=== PATIENT | male | born 1945 | race Caucasian/White ===

== ENCOUNTER 2017-02-18 15:14 | Emergency (ER) | payer MEDICARE, MEDICAID ==
[~2017-02-18] VITALS: Ht 165.1 cm; Wt 104.5 kg
[~2017-02-18 15:14] MED LIST: AMLODIPINE10 MG OR; AMLODIPINE10 MG PO; AMLODIPINE5 MG PO; ANTIVERT25 MG PO; ATENOLOL50 MG OR; ATORVASTATIN CA40 MG PO; AZITHROMYCIN250 MG PO; BABY ASPIRIN81 MG OR; BACTRIM DS1 TAB PO; BACTROBAN2 % EX; BD INSULIN SC; CARAFATE PO; CILOSTAZOL100 MG OR; CIPRO500 MG PO; CLONIDINE0.1 MG OR; CLONIDINE0.1 MG PO; CLOPIDOGREL75 MG PO; COUMADIN5 MG OR; COUMADIN5 MG PO; COUMADIN7.5 MG PO; CYCLOBENZAPR10 MG OR; DEPO-TESTOS200 MG/M1 IM; DIABETA5 MG OR; DILTIAZEM CD120 MG PO; DILTIAZEM120 MG PO; DOXAZOSIN4 MG PO; DOXYCYCL HYC100 MG PO; DUONEB IN; EASY TOUCH SC; FINASTERIDE5 MG PO; FLEXERIL OR; FLEXERIL PO; FLUARIX QUADRIV1 IN1 IM; FLUARIX QUADRIV1 INJ IM; FLUZONE SPLT1 M1 IM; FUROSEMIDE40 MG PO; GABAPENTIN300 MG PO; GABAPENTIN400 M2 PO; GLUCOPHAGE500 MG OR; GLYBURID MCR1.5 MG OR; GLYBURIDE5 MG OR; HUMULIN 70/30 IM; HUMULIN 70/30 K1 INJ SC; HYDRALAZINE100 MG PO; HYDRALAZINE25 MG OR; HYDRALAZINE25 MG PO; HYDRALAZINE50 MG OR; HYDROCHLORO25 MG/TAB PO; HYDROCHLOROT12.5 MG PO; HYDROCHLOROT25 MG PO; HYDROCO/APAP1 T11 PO; HYDROCO/APAP1 TA9 PO; HYDROXYZ HCL25 MG PO; IMDUR30 MG PO; INSULIN ISOPHANE HUMAN; INSULIN ISOPHANE HUMAN SC; INSULIN REGULAR HUMAN; INSULIN REGULAR HUMAN SC; ISOSORB MONO60 M1 PO; ISOSORB MONO60 MG OR; ISOSORB MONO60 MG PO; ISOSORBIDE MONO30 MG PO; KEFLEX500 M1 PO; KEFLEX500 MG PO; LANTUS100 MG/ML SC; LASIX 10 MG10 MG/TA1 PO; LASIX 20 MG TAB20 MG PO; LASIX 40 MG TAB40 MG PO; LEVEMIR FL100 UNIT/M SC; LIPITOR20 MG PO; LIPITOR40 MG PO; LISINOPRIL10 MG PO; LISINOPRIL20 M1 PO; LISINOPRIL20 MG PO; LISINOPRIL40 MG PO; LISINOPRIL5 MG PO; LORTAB 1010 MG PO; LORTAB 5 OR; LORTAB5 PO; LOTENSIN HCT1 TAB OR; MAXZIDE-2537.5 MG/TA PO; MECLIZINE25 MG PO; MEDDOSEPAK PO; MELOXICAM7.5 MG PO; METFORMIN500 M1 OR; METOPROL TAR100 MG OR; METOPROL TAR25 MG PO; METOPROLOL SUCC25 MG PO; METOPROLOL SUCC50 MG PO; METOPROLOL100 M1 OR; MICRO-K10 ME1 PO; MOTRIN800 MG PO; MOTRIN800 MG/TAB PO; NAPROSYN500 MG PO; NEURONTIN600 MG PO; NITROGLYCER0.4 MG SL; NITROSTAT0.4 MG SL; NORCO1 TA1 PO; NORVASC10 M1 OR; NORVASC5 MG PO; NOVOLIN 70/30 IM; NOVOLIN 70/30 SC; NOVOLO1; NOVOLO1 SC; NOVOLOG100 IU/1 M SC; NYSTAT/TRIA2 EX; OFLOXACIN0.3 % OD; PAIN MEDICATION; PAIN RELIEF500 MG OR; PLAVIX75 MG OR; PLAVIX75 MG PO; PLETAL100 MG OR; PLETAL50 MG OR; PREDNISONE10 MG PO; PRIMIDONE50 MG PO; PROAIR HFA IN; PROTONIX40 MG PO; QVAR80 MCG IN; SIMVASTATIN80 MG PO; TAMSULOSIN HCL0.4 MG PO; TERBINAFINE250 M1 OR; TRAMADOL HCL50 MG PO; TRUETRACK SC; ULTRAM50 M1 PO; ULTRAM50 MG OR; WARFARIN SODIU2.5 MG PO; WARFARIN5 MG PO; WARFARIN7.5 MG PO; XARELTO10 MG PO; XARELTO15 MG PO; ZESTORETIC 20/11 TAB OR; ZESTRIL5 M1 PO; [UNRECOGNIZED DRUG - OTHER] PO; [UNRECOGNIZED DRUG - SUPPLY] SC; allo PO
[2017-02-18] MEDS ORDERED: TRAMADOL HYDROC50 MG PO (17:42)
[2017-02-18 18:16] VITALS: BP 162/73
== END 2017-02-18 18:05 | disposition home or self-care (01) ==
LOC: ED 15:14
DX: S83.92XA Sprain of unspecified site of left knee, initial encounter (principal); I48.91 Unspecified atrial fibrillation; E11.40 Type 2 diabetes mellitus with diabetic neuropathy, unspecified; I25.10 Atherosclerotic heart disease of native coronary artery without angina pectoris; I11.0 Hypertensive heart disease with heart failure; I50.9 Heart failure, unspecified; X50.9XXA Other and unspecified overexertion or strenuous movements or postures, initial encounter; Y93.89 Activity, other specified; Y92.009 Unspecified place in unspecified non-institutional (private) residence as the place of occurrence of the external cause; Z86.73 Personal history of transient ischemic attack (TIA), and cerebral infarction without residual deficits; Z95.1 Presence of aortocoronary bypass graft; Z95.820 Peripheral vascular angioplasty status with implants and grafts; M79.605 Pain in left leg

== ENCOUNTER 2017-04-08 15:59 | Emergency (ER) | payer MEDICARE, MEDICAID ==
[~2017-04-08] VITALS: Ht 165.1 cm; Wt 105.0 kg
[~2017-04-08 15:59] MED LIST changes: +TRAMADOL HYDROC50 MG PO
[2017-04-08 16:45] LABS: HEMATOCRIT 37.5 % (39.0-50.0); HEMOGLOBIN 12.4 g/dl (14.0-18.0); IMMATURE GRANULOCYTES 0.3 % (0.0-1.0); MEAN CELL VOLUME 91.9 fL CALC (80.0-100.0); MEAN CORPUSCULAR HGB 30.4 pG CALC (26.0-32.0); MEAN CORPUSCULAR HGB CONC 33.1 g/L CALC (32.0-36.0); NEUT# 4.49 thou/uL (1.82-7.42); RED BLOOD COUNT 4.08 mill/uL (4.70-6.10); RED CELL DISTRI WIDTH 14.1 % (11.5-15.5)
[2017-04-08 17:10] LABS: ALBUMIN 3.6 g/dL (3.2-5.0); BILIRUBIN, TOTAL 0.7 mg/dL (0.0-1.4); CALCIUM 8.7 mg/dL (8.4-10.2); CREATININE 1.4 mg/dL (0.7-1.3); POTASSIUM 3.9 mmol/l (3.5-5.1)
[2017-04-08] MEDS ORDERED: EC-NAPROSYN500 MG PO (17:20)
[2017-04-08] MEDS ORDERED: PERCOCET 5/325M1 TAB PO (17:20)
[2017-04-08 17:55] VITALS: BP 131/66
== END 2017-04-08 18:00 | disposition home or self-care (01) ==
LOC: ED 15:59
PROVIDERS: Emergency Medicine
DX: S20.211A Contusion of right front wall of thorax, initial encounter (principal); W01.190A Fall on same level from slipping, tripping and stumbling with subsequent striking against furniture, initial encounter; Y92.009 Unspecified place in unspecified non-institutional (private) residence as the place of occurrence of the external cause; R00.1 Bradycardia, unspecified; I48.91 Unspecified atrial fibrillation; E11.9 Type 2 diabetes mellitus without complications; Z79.4 Long term (current) use of insulin

== ENCOUNTER 2017-04-13 15:55 | Emergency (ER) | payer MEDICARE, MEDICAID ==
[~2017-04-13] VITALS: Ht 165.1 cm; Wt 100.0 kg
[~2017-04-13 15:55] MED LIST changes: +EC-NAPROSYN500 MG PO; +PERCOCET 5/325M1 TAB PO
[2017-04-13 16:28] LABS: HEMATOCRIT 36.3 % (39.0-50.0); HEMOGLOBIN 12.1 g/dl (14.0-18.0); IMMATURE GRANULOCYTES 0.5 % (0.0-1.0); MEAN CELL VOLUME 92.4 fL CALC (80.0-100.0); MEAN CORPUSCULAR HGB 30.8 pG CALC (26.0-32.0); MEAN CORPUSCULAR HGB CONC 33.3 g/L CALC (32.0-36.0); NEUT# 3.86 thou/uL (1.82-7.42); RED BLOOD COUNT 3.93 mill/uL (4.70-6.10); RED CELL DISTRI WIDTH 14.2 % (11.5-15.5)
[2017-04-13 16:45] LABS: ALBUMIN 3.7 g/dL (3.2-5.0); BILIRUBIN, TOTAL 0.7 mg/dL (0.0-1.4); CALCIUM 8.8 mg/dL (8.4-10.2); CREATININE 1.6 mg/dL (0.7-1.3); POTASSIUM 5.1 mmol/l (3.5-5.1); TOTAL PROTEIN 7.5 g/dL (6.3-8.2)
[2017-04-13] MEDS ORDERED: LISINOPRIL20 MG PO (17:03)
[2017-04-13] MEDS ORDERED: ATORVASTATIN CA80 MG PO (17:04)
[2017-04-13] MEDS ORDERED: GABAPENTIN100 MG PO ×2 (17:06)
[2017-04-13] MEDS ORDERED: METO25TAB PO (17:09)
[2017-04-13] MEDS ORDERED: ALLOPURINOL100 MG PO (17:10)
[2017-04-13 17:50] VITALS: BP 128/65
== END 2017-04-13 17:50 | disposition home or self-care (01) ==
LOC: ED 15:55
PROVIDERS: Emergency Medicine
DX: I12.9 Hypertensive chronic kidney disease with stage 1 through stage 4 chronic kidney disease, or unspecified chronic kidney disease (principal); N18.9 Chronic kidney disease, unspecified; N17.9 Acute kidney failure, unspecified; I48.91 Unspecified atrial fibrillation; Z79.01 Long term (current) use of anticoagulants; E11.9 Type 2 diabetes mellitus without complications; Z79.4 Long term (current) use of insulin; Z86.73 Personal history of transient ischemic attack (TIA), and cerebral infarction without residual deficits; I25.700 Atherosclerosis of coronary artery bypass graft(s), unspecified, with unstable angina pectoris; Z95.1 Presence of aortocoronary bypass graft; R11.2 Nausea with vomiting, unspecified; R42 Dizziness and giddiness

== ENCOUNTER 2017-06-12 20:55 | Emergency (ER) | payer MEDICARE, MEDICAID ==
[~2017-06-12] VITALS: Ht 165.1 cm; Wt 106.0 kg
[~2017-06-12 20:55] MED LIST changes: +ALLOPURINOL100 MG PO; +ATORVASTATIN CA80 MG PO; +GABAPENTIN100 MG PO; +METO25TAB PO
[2017-06-12] MEDS ORDERED: METFORMIN500 MG PO (21:18)
[2017-06-12] MEDS ORDERED: LASIX 20 MG20 MG/TAB PO (21:19)
[2017-06-12] MEDS ORDERED: PRIMIDONE50 MG PO (21:22)
[2017-06-12] MEDS ORDERED: ULTRAM50 M1 PO (21:22)
[2017-06-12] MEDS ORDERED: NOVOLOG MIX SC (21:36)
[2017-06-12 22:26] LABS: HEMATOCRIT 37.6 % (39.0-50.0); HEMOGLOBIN 12.7 g/dl (14.0-18.0); IMMATURE GRANULOCYTES 0.3 % (0.0-1.0); MEAN CELL VOLUME 90.6 fL CALC (80.0-100.0); MEAN CORPUSCULAR HGB 30.6 pG CALC (26.0-32.0); MEAN CORPUSCULAR HGB CONC 33.8 g/L CALC (32.0-36.0); NEUT# 5.3 thou/uL (1.82-7.42); RED BLOOD COUNT 4.15 mill/uL (4.70-6.10); RED CELL DISTRI WIDTH 14.2 % (11.5-15.5)
[2017-06-12 22:32] LABS: URINE BILIRUBIN - DIPSTICK NEGATIVE (NEGATIVE); URINE BLOOD DIPSTICK SMALL (NEGATIVE); URINE COLOR YELLOW; URINE GLUCOSE - DIPSTICK NEGATIVE (NEGATIVE); URINE KETONE NEGATIVE (NEGATIVE); URINE LEUK ESTERASE NEGATIVE (NEGATIVE); URINE NITRITE - DIPSTICK NEGATIVE (Negative); URINE PH 7.5 (4.5-8.0); URINE PROTEIN - DIPSTICK >=300 mg/dL (NEG-TRACE); URINE UROBILINOGEN - DIPSTICK 0.2 E.U./dL (0.2)
[2017-06-12 22:35] LABS: URINE CLARITY CLEAR; URINE SQUAMOUS EPITHELIAL CELL FEW EPI/hpf (0-FEW)
[2017-06-12 22:37] LABS: INFLUENZA A NONE DETECTED (NONE DETECT); INFLUENZA B NONE DETECTED (NONE DETECT)
[2017-06-12 22:40] LABS: ALBUMIN 3.5 g/dL (3.2-5.0); ALKALINE PHOSPHATASE 85 u/l (38-126); ANION GAP 12 (6-22 (CALC)); BILIRUBIN, TOTAL 0.8 mg/dL (0.0-1.4); BUN 18 mg/dL (8-23); BUN/CREATININE RATIO 19 (12-20 (CALC)); CALCIUM 9.2 mg/dL (8.4-10.2); CARBON DIOXIDE 28 mmol/l (22-30); CHLORIDE 100 mmol/l (95-108); CREATININE 0.9 mg/dL (0.7-1.3); GFR > 60 ML/MIN (>=60 (CALC)); GFR FOR AFR.AMER. > 60 ML/MIN (>=60 (CALC)); GLUCOSE 97 mg/dL (82-115); POTASSIUM 4.5 mmol/l (3.5-5.1); SGOT/AST 36 u/l (19-48); SGPT/ALT 37 u/l (11-66); SODIUM 135 mmol/l (137-146); TOTAL PROTEIN 6.8 g/dL (6.3-8.2)
[2017-06-12 22:52] LABS: MYOGLOBIN 69 ng/mL (0 - 121)
[2017-06-12 23:40] VITALS: BP 163/74
[2017-06-13] MEDS ORDERED: FINASTERIDE5 MG PO (15:02)
[2017-06-13] MEDS ORDERED: NEURONTIN600 MG PO (15:03)
[2017-06-13] MEDS ORDERED: TOUJEO SOL300 UNIT/M SC (15:06)
== END 2017-06-12 23:40 | disposition home or self-care (01) ==
LOC: ED 20:55
PROVIDERS: Emergency Medicine
DX: R50.9 Fever, unspecified (principal); R94.31 Abnormal electrocardiogram [ECG] [EKG]; J34.89 Other specified disorders of nose and nasal sinuses; I10 Essential (primary) hypertension; Z86.73 Personal history of transient ischemic attack (TIA), and cerebral infarction without residual deficits; K21.9 Gastro-esophageal reflux disease without esophagitis; I48.91 Unspecified atrial fibrillation; E11.9 Type 2 diabetes mellitus without complications; Z79.4 Long term (current) use of insulin

== ENCOUNTER 2017-06-22 06:06 | Day surgery (SDC) | payer MEDICARE, MEDICAID ==
[~2017-06-22 06:06] MED LIST changes: +LASIX 20 MG20 MG/TAB PO; +METFORMIN500 MG PO; +NOVOLOG MIX SC; +TOUJEO SOL300 UNIT/M SC
[2017-06-22 10:10] VITALS: BP 181/85
== END 2017-06-22 08:40 | disposition home or self-care (01) ==
LOC: ENDO 06:06
PROVIDERS: ATTEND Surgery
PROC: 0DJD8ZZ Inspection of Lower Intestinal Tract, Via Natural or Artificial Opening Endoscopic (ICD-10-PCS; principal; 2017-06-22)
DX: Z12.11 Encounter for screening for malignant neoplasm of colon (principal); K64.4 Residual hemorrhoidal skin tags; I25.10 Atherosclerotic heart disease of native coronary artery without angina pectoris; I10 Essential (primary) hypertension; I73.9 Peripheral vascular disease, unspecified; M10.9 Gout, unspecified; Z86.73 Personal history of transient ischemic attack (TIA), and cerebral infarction without residual deficits; Z79.01 Long term (current) use of anticoagulants; Z79.02 Long term (current) use of antithrombotics/antiplatelets

== ENCOUNTER 2017-07-29 08:42 | Inpatient (IN) | payer MEDICARE, MEDICAID ==
[~2017-07-29] VITALS: Ht 165.1 cm; Wt 106.2 kg
[~2017-07-29 08:42] MED LIST changes: -LASIX 20 MG20 MG/TAB PO; +LASIX 40 MG40 MG/TAB PO
--- NOTE | 2017-07-29 08:50 | NUR ---
PT DIRECTLY TO ROOM 10 VIA WHEELCHAIR.
--- NOTE | 2017-07-29 08:55 | NUR ---
VERBAL ORDER PER DR RAMIREZ TITRATE O2 TO 92% VIA NC. PT CURRENTLY ON 4 L NC SAO2 94%.
--- NOTE | 2017-07-29 09:02 | NUR ---
PATIENT TO ROOM VIA WHEELCHAIR AND PHYSICIAN AT BEDSIDE FOR EVAL
--- NOTE | 2017-07-29 09:05 | NUR ---
PT REPORTS SOB STARTING YESTERDAY, SAO2 UPON ARRIVAL 86% ON ROOM AIR. PT ABLE TO SPEAK IN COMPLETE SENTENCES AND DENIES ANY PAIN. IV INITIATED, LABS COLLECTED AND EKG COMPLETED. PT REPORTS PRODUCTIVE COUGH. LS DIMINIAHED BILATERALLY WITH WHEEZES NOTED. +2 PITTING EDEMA NOTED TO BILATERAL LOWER EXTREMITIES. PT HOB ELEVATED AND IS AWARE OF PLAN OF CARE AND WAIT TIME. CALL AZEVEDO WITHIN REACH, WILL CONTINUE TO MONITOR.
--- NOTE | 2017-07-29 09:15 | NUR ---
O2 TITRATED DOWN TO 2L NC, SAO2 94%.
--- NOTE | 2017-07-29 09:42 | NUR ---
PT MEDICATED WITH 650 MG OF TYLENOL FOR TEMP OF 100.3 AND 10 MG OF LABEAOLOL SLOW IVP FOR CONTINUED HTN. PT RESTING COMFORTABLY IN STRETCHER WITH HOB ELEVATED. WILL CONTINUE TO MONITOR.
[2017-07-29 09:51] LABS: HEMATOCRIT 38.8 % (39.0-50.0); HEMOGLOBIN 12.4 g/dl (14.0-18.0); IMMATURE GRANULOCYTES 0.5 % (0.0-1.0); MEAN CELL VOLUME 93.9 fL CALC (80.0-100.0); NEUT# 5.12 thou/uL (1.82-7.42); RED BLOOD COUNT 4.13 mill/uL (4.70-6.10); RED CELL DISTRI WIDTH 13.5 % (11.5-15.5)
[2017-07-29 09:57] LABS: ANION GAP 15 (6-22 (CALC)); BUN 18 mg/dL (8-23); BUN/CREATININE RATIO 19 (12-20 (CALC)); CALCIUM 9.5 mg/dL (8.4-10.2); CARBON DIOXIDE 28 mmol/l (22-30); CHLORIDE 103 mmol/l (95-108); GFR > 60 ML/MIN (>=60 (CALC)); GFR FOR AFR.AMER. > 60 ML/MIN (>=60 (CALC)); GLUCOSE 76 mg/dL (82-115); LIPASE 46 u/l (23-300); POTASSIUM 3.9 mmol/l (3.5-5.1); SODIUM 142 mmol/l (137-146)
[2017-07-29 09:57] LABS: URINE BILIRUBIN - DIPSTICK NEGATIVE (NEGATIVE); URINE BLOOD DIPSTICK TRACE-INTACT (NEGATIVE); URINE COLOR YELLOW; URINE GLUCOSE - DIPSTICK NEGATIVE (NEGATIVE); URINE KETONE NEGATIVE (NEGATIVE); URINE LEUK ESTERASE NEGATIVE (NEGATIVE); URINE NITRITE - DIPSTICK NEGATIVE (Negative); URINE PH 7.5 (4.5-8.0); URINE UROBILINOGEN - DIPSTICK 0.2 E.U./dL (0.2)
--- NOTE | 2017-07-29 10:05 | NUR ---
PT RESTING COMFORTBALY IN STRETCHER WITH HOB ELEVATED, SAO2 94% ON 2L NC. IV ANTIBIOTICS INFUSING WITH NO DIFFICULTY. IV SITE FREE FROM REDNESS AND EDEMA. WILL CONTINUE TO MONITOR.
[2017-07-29 10:20] LABS: INFLUENZA A NONE DETECTED (NONE DETECT); INFLUENZA B NONE DETECTED (NONE DETECT)
--- NOTE | 2017-07-29 10:20 | NUR ---
AT [facility] TO DISCUSS RESULTS AND PLAN FOR ADMISSION.
[2017-07-29 10:22] LABS: URINE CLARITY SL CLOUDY; URINE PROTEIN - DIPSTICK Trace mg/dL (NEG-TRACE)
--- NOTE | 2017-07-29 10:27 | NUR ---
SBAR PRINTED TO FLOOR
--- NOTE | 2017-07-29 10:45 | NUR ---
NURSE WILL CALL BACK FOR REPORT.
--- NOTE | 2017-07-29 11:10 | NUR ---
REPORT CALLED TO RICH LAMBERT.
--- NOTE | 2017-07-29 11:15 | NUR ---
Admission Note Report Given to: RICH LAMBERT Transported by: Wheelchair X Stretcher Transported with: X Nurse Transporter X Patent IV X O2 X Anodizing Line Operator PT TRANSPORTED TO ROOM 282 IN STABLE CONDITION.
--- NOTE | 2017-07-29 11:15 | NUR ---
PT ARRIVED FROM ER VIA STRETCHER ACCOMPANIED BY STAFF. IV SITE IS FREE FROM REDNESS OR EDEMA. ASSESSMENT IS COMPLETED: PT'S BREATH SOUNDS ARE CLEAR, BILATERALLY. O2 @ 2 LITERS WITH NC. TELE MONITOR IN PLACE.
[2017-07-29 11:53] VITALS: BP 154/79
--- NOTE | 2017-07-29 16:00 | NUR ---
PT STARTED TO VOMIT ,AFTER USING THE BATHROOM AND PLOPPING HIMSELF INTO BED. ENCOURAGED PT NOT TO PLOP IN BED. IV SITE IS FREE FROM REDNESS OR EDEMA. FRIENDS HAVE BEEM IN THE ROOM. AND INQUIRING ABOUT BRINGING HIS DOG UP TO THE UNIT. EXPLAINED IF IT WAS A BIG DOG THAT WE WERE UNABLE TO HAVE IT BROUGHT TO THE UNIT. VERBALIZED UNDERSTANDING.
--- NOTE | 2017-07-29 20:00 | NUR ---
BEDSIDE REORT RECEIVED FROM RICH LAMBERT. PT RESTING IN BED WATCHING TV. DENIES PAIN AT THIS TIME; STATES THAT HIS BREATHING IS MUCH IMPROVED FROM BEFORE AND HIS COUGHING HAS DECREASED. STATES THAT IT IS NO LONGER PRODUCTIVE. RESPIRATIONS EVEN AND UNLABORED ON OXYGEN. PLAN OF CARE REVIEWED. PT ENCOURAGED TO VERBALIZE CONCERNS. STATES UNDERSTANDING. SAFETY MEASURES IN PLACE. CALL LIGHT SYSTEM WITHIN REACH.
[2017-07-29 20:20] VITALS: BP 115/70
[2017-07-30 00:05] VITALS: BP 118/69
--- NOTE | 2017-07-30 00:16 | NUR ---
CRITICAL LAB CALLED FOR ELEVATED TROPONIN 0.421. PT IS ASLEEP AND IN NO DISTRESS. AWAKENED AT THIS TIME AND HE DENIES ANY PAIN. RESPIRATIONS EVEN AND UNLABORED ON OXYGEN. BP 118/68 P [address] DIAZ NOTIFIED AND NEW ORDERS TO TRANSFER TO [facility]. PT WAS NOTIFIED OF ALL NEW ORDERS.
--- NOTE | 2017-07-30 00:57 | NUR ---
PT CONTINUES TO REST IN BED WITH NO SIGNS OF DISTRESS. RESPIRATIONS EVEN AND UNLABORED. AWAITING CALL BACK FROM [facility] FOR BED. DR. DIAZ NOTIFIED OF EKG RESULTS.
--- NOTE | 2017-07-30 03:21 | NUR ---
RECEIVED A BED ASSIGNMENT FROM [address] PT AWARE AND TRANSFER CONSENT SIGNED. EMERGENCY CONTACT, MARINA, ALSO NOTIFIED OF TRANSPORT AND ROOM NUMBER. [facility] TO TRANSPORT.
--- NOTE | 2017-07-30 03:53 | NUR ---
Discharge instructions given. Patient verbalizes understanding of same. Discharged in stable condition via Medical Transport to [facility] with [facility]. All belongings sent with pt.
== END 2017-07-30 03:34 | disposition short-term general hospital (02) | DRG 193 ==
LOC: ED 08:42 → ED-I 10:11 → ED 10:24 → MS2 10:25
PROVIDERS: Family Medicine; ADMIT Internal Medicine; ATTEND Internal Medicine
DX: J18.9 Pneumonia, unspecified organism (principal); I21.4 Non-ST elevation (NSTEMI) myocardial infarction; N17.9 Acute kidney failure, unspecified; I13.0 Hypertensive heart and chronic kidney disease with heart failure and stage 1 through stage 4 chronic kidney disease, or unspecified chronic kidney disease; E11.22 Type 2 diabetes mellitus with diabetic chronic kidney disease; N18.3 Chronic kidney disease, stage 3 (moderate); E11.649 Type 2 diabetes mellitus with hypoglycemia without coma; I50.9 Heart failure, unspecified; I48.91 Unspecified atrial fibrillation; I25.10 Atherosclerotic heart disease of native coronary artery without angina pectoris; D63.1 Anemia in chronic kidney disease; I25.2 Old myocardial infarction; Z95.5 Presence of coronary angioplasty implant and graft; Z79.4 Long term (current) use of insulin; Z86.73 Personal history of transient ischemic attack (TIA), and cerebral infarction without residual deficits; Z95.820 Peripheral vascular angioplasty status with implants and grafts; Z95.9 Presence of cardiac and vascular implant and graft, unspecified; Z79.01 Long term (current) use of anticoagulants

== ENCOUNTER 2017-09-27 05:47 | Emergency (ER) | payer MEDICARE, MEDICAID ==
[~2017-09-27] VITALS: Ht 165.1 cm; Wt 100.0 kg
[~2017-09-27 05:47] MED LIST changes: +LASIX40 MG PO
[2017-09-27] MEDS ORDERED: DIOVAN160 MG PO (06:19)
[2017-09-27] MEDS ORDERED: PLAVIX75 MG PO (06:20)
[2017-09-27] MEDS ORDERED: HUMALOG KW100 UNIT/M SC (06:23)
[2017-09-27 06:29] LABS: HEMATOCRIT 37.8 % (39.0-50.0); HEMOGLOBIN 12.1 g/dl (14.0-18.0); IMMATURE GRANULOCYTES 0.3 % (0.0-1.0); MEAN CELL VOLUME 92.6 fL CALC (80.0-100.0); MEAN CORPUSCULAR HGB 29.7 pG CALC (26.0-32.0); NEUT# 5.68 thou/uL (1.82-7.42); RED BLOOD COUNT 4.08 mill/uL (4.70-6.10); RED CELL DISTRI WIDTH 14.2 % (11.5-15.5)
[2017-09-27 06:43] LABS: CREATININE 1.6 mg/dL (0.7-1.3); POTASSIUM 4.7 mmol/l (3.5-5.1)
[2017-09-27 08:45] VITALS: BP 186/80
== END 2017-09-27 08:45 | disposition home or self-care (01) ==
LOC: ED 05:47
PROVIDERS: Family Medicine
DX: E11.649 Type 2 diabetes mellitus with hypoglycemia without coma (principal); N28.9 Disorder of kidney and ureter, unspecified; I11.0 Hypertensive heart disease with heart failure; I50.9 Heart failure, unspecified; I48.91 Unspecified atrial fibrillation; I48.92 Unspecified atrial flutter; M19.90 Unspecified osteoarthritis, unspecified site; I25.2 Old myocardial infarction; Z86.73 Personal history of transient ischemic attack (TIA), and cerebral infarction without residual deficits

== ENCOUNTER 2018-07-10 16:01 | Emergency (ER) | payer MEDICARE, MEDICAID ==
[~2018-07-10] VITALS: Ht 165.1 cm; Wt 109.0 kg
[~2018-07-10 16:01] MED LIST changes: +DIOVAN160 MG PO; +HUMALOG KW100 UNIT/M SC
[2018-07-10] MEDS ORDERED: TOUJEO SOL300 UNIT/M SC (16:26)
[2018-07-10 17:32] LABS: HEMATOCRIT 37.3 % (39.0-50.0); HEMOGLOBIN 12.1 g/dl (14.0-18.0); IMMATURE GRANULOCYTES 0.3 % (0.0-5.0); MEAN CELL VOLUME 90.5 fL CALC (80.0-100.0); MEAN CORPUSCULAR HGB 29.4 pG CALC (26.0-32.0); MEAN CORPUSCULAR HGB CONC 32.4 g/L CALC (32.0-36.0); NEUT# 4.23 thou/uL (1.82-7.42); RED BLOOD COUNT 4.12 mill/uL (4.70-6.10); RED CELL DISTRI WIDTH 14.2 % (11.5-15.5)
[2018-07-10 17:49] LABS: ALBUMIN 2.9 g/dL (3.2-5.0); ALKALINE PHOSPHATASE 107 u/l (38-126); ANION GAP 11 (6-22 (CALC)); BILIRUBIN, TOTAL 0.3 mg/dL (0.0-1.4); BUN 22 mg/dL (8-23); BUN/CREATININE RATIO 18 (12-20 (CALC)); CARBON DIOXIDE 27 mmol/l (22-30); CHLORIDE 104 mmol/l (95-108); CREATININE 1.2 mg/dL (0.7-1.3); GFR 60 ML/MIN (>=60 (CALC)); GFR FOR AFR.AMER. > 60 ML/MIN (>=60 (CALC)); POTASSIUM 4.1 mmol/l (3.5-5.1); SGOT/AST 26 u/l (19-48); SODIUM 138 mmol/l (137-146); TOTAL PROTEIN 6.6 g/dL (6.3-8.2)
[2018-07-10 21:40] VITALS: BP 169/84
== END 2018-07-10 21:17 | disposition home or self-care (01) ==
LOC: ED 16:01
PROVIDERS: Emergency Medicine
DX: I10 Essential (primary) hypertension (principal); I50.9 Heart failure, unspecified; I48.91 Unspecified atrial fibrillation; R22.42 Localized swelling, mass and lump, left lower limb; R22.43 Localized swelling, mass and lump, lower limb, bilateral; E11.9 Type 2 diabetes mellitus without complications; Z79.4 Long term (current) use of insulin; M79.605 Pain in left leg; M79.604 Pain in right leg

== ENCOUNTER 2018-11-03 10:11 | Emergency (ER) | payer MEDICARE, MEDICAID ==
[~2018-11-03] VITALS: Ht 165.1 cm; Wt 130.0 kg
[2018-11-03 10:44] LABS: HEMATOCRIT 40.3 % (39.0-50.0); IMMATURE GRANULOCYTES 1.4 % (0.0-5.0); MEAN CELL VOLUME 93.1 fL CALC (80.0-100.0); MEAN CORPUSCULAR HGB CONC 32.3 g/L CALC (32.0-36.0); NEUT# 6.25 thou/uL (1.82-7.42); RED BLOOD COUNT 4.33 mill/uL (4.70-6.10)
[2018-11-03 11:06] LABS: ALKALINE PHOSPHATASE 120 u/l (38-126); ANION GAP 14 (6-22 (CALC)); BILIRUBIN, TOTAL 0.7 mg/dL (0.0-1.4); BUN 26 mg/dL (8-23); BUN/CREATININE RATIO 20 (12-20 (CALC)); CARBON DIOXIDE 26 mmol/l (22-30); CHLORIDE 103 mmol/l (95-108); CREATININE 1.3 mg/dL (0.7-1.3); GFR 54 ML/MIN (>=60 (CALC)); GFR FOR AFR.AMER. > 60 ML/MIN (>=60 (CALC)); POTASSIUM 4.7 mmol/l (3.5-5.1); SGOT/AST 33 u/l (19-48); SODIUM 139 mmol/l (137-146)
[2018-11-03 11:18] LABS: MYOGLOBIN 82 ng/mL (0 - 121)
[2018-11-03 12:15] VITALS: BP 158/67
[2018-11-03 12:25] LABS: URINE BILIRUBIN - DIPSTICK NEGATIVE (NEGATIVE); URINE BLOOD DIPSTICK TRACE-LYSED (NEGATIVE); URINE COLOR YELLOW; URINE GLUCOSE - DIPSTICK NEGATIVE (NEGATIVE); URINE KETONE NEGATIVE (NEGATIVE); URINE LEUK ESTERASE NEGATIVE (NEGATIVE); URINE NITRITE - DIPSTICK NEGATIVE (Negative); URINE PH 6.5 (4.5-8.0); URINE PROTEIN - DIPSTICK >=300 mg/dL (NEG-TRACE); URINE UROBILINOGEN - DIPSTICK 0.2 E.U./dL (0.2)
[2018-11-03 13:08] LABS: URINE MUCUS FEW hpf (NONE-FEW); URINE RBC 0-2 RBC/hpf (0-5)
== END 2018-11-03 12:29 | disposition home or self-care (01) ==
LOC: ED 10:11
PROVIDERS: Emergency Medicine
DX: I11.0 Hypertensive heart disease with heart failure (principal); I50.9 Heart failure, unspecified; E11.9 Type 2 diabetes mellitus without complications; Z95.5 Presence of coronary angioplasty implant and graft; R06.02 Shortness of breath

== ENCOUNTER 2019-01-08 07:48 | Emergency (ER) | payer MEDICARE, MEDICAID ==
[~2019-01-08] VITALS: Ht 165.1 cm; Wt 105.5 kg
[2019-01-08 09:16] LABS: URINE BILIRUBIN - DIPSTICK NEGATIVE (NEGATIVE); URINE BLOOD DIPSTICK TRACE-LYSED (NEGATIVE); URINE COLOR YELLOW; URINE GLUCOSE - DIPSTICK NEGATIVE (NEGATIVE); URINE KETONE NEGATIVE (NEGATIVE); URINE LEUK ESTERASE NEGATIVE (NEGATIVE); URINE NITRITE - DIPSTICK NEGATIVE (Negative); URINE PROTEIN - DIPSTICK 100 mg/dL (NEG-TRACE); URINE UROBILINOGEN - DIPSTICK 0.2 E.U./dL (0.2)
[2019-01-08 09:23] LABS: URINE EPITHELIAL CELLS RARE EPI/hpf (0-FEW); URINE MUCUS MODERATE hpf (NONE-FEW); URINE RBC 0-2 RBC/hpf (0-5)
[2019-01-08] MEDS ORDERED: ULTRAM50 M1 PO (09:53)
[2019-01-08] MEDS ORDERED: FLEXERIL PO (09:53)
[2019-01-08 10:32] LABS: HEMATOCRIT 35.5 % (39.0-50.0); HEMOGLOBIN 11.5 g/dl (14.0-18.0); IMMATURE GRANULOCYTES 0.4 % (0.0-5.0); MEAN CELL VOLUME 91.7 fL CALC (80.0-100.0); MEAN CORPUSCULAR HGB 29.7 pG CALC (26.0-32.0); MEAN CORPUSCULAR HGB CONC 32.4 g/L CALC (32.0-36.0); NEUT# 5.62 thou/uL (1.82-7.42); RED BLOOD COUNT 3.87 mill/uL (4.70-6.10); RED CELL DISTRI WIDTH 13.6 % (11.5-15.5)
[2019-01-08 11:05] LABS: ALBUMIN 3.9 g/dL (3.2-5.0); BILIRUBIN, TOTAL 0.6 mg/dL (0.0-1.4); CREATININE 1.7 mg/dL (0.7-1.3); POTASSIUM 4.4 mmol/l (3.5-5.1); TOTAL PROTEIN 7.6 g/dL (6.3-8.2)
[2019-01-08 11:33] VITALS: BP 162/70
== END 2019-01-08 11:33 | disposition home or self-care (01) ==
LOC: ED 07:48
PROVIDERS: Emergency Medicine
DX: S00.01XA Abrasion of scalp, initial encounter (principal); S33.5XXA Sprain of ligaments of lumbar spine, initial encounter; S23.3XXA Sprain of ligaments of thoracic spine, initial encounter; I10 Essential (primary) hypertension; E11.9 Type 2 diabetes mellitus without complications; I25.10 Atherosclerotic heart disease of native coronary artery without angina pectoris; W17.89XA Other fall from one level to another, initial encounter; Y92.008 Other place in unspecified non-institutional (private) residence as the place of occurrence of the external cause; Z95.5 Presence of coronary angioplasty implant and graft; Z95.820 Peripheral vascular angioplasty status with implants and grafts; Z79.4 Long term (current) use of insulin

== ENCOUNTER 2019-04-22 13:35 | Emergency (ER) | payer MEDICARE, MEDICAID ==
[~2019-04-22] VITALS: Ht 165.1 cm; Wt 62.3 kg
[2019-04-22 14:27] LABS: HEMATOCRIT 33.2 % (39.0-50.0); HEMOGLOBIN 10.6 g/dl (14.0-18.0); IMMATURE GRANULOCYTES 0.4 % (0.0-5.0); MEAN CELL VOLUME 92.5 fL CALC (80.0-100.0); MEAN CORPUSCULAR HGB 29.5 pG CALC (26.0-32.0); MEAN CORPUSCULAR HGB CONC 31.9 g/L CALC (32.0-36.0); NEUT# 5.61 thou/uL (1.82-7.42); RED BLOOD COUNT 3.59 mill/uL (4.70-6.10)
[2019-04-22 14:46] LABS: ACT PARTIAL THROMBO TIME 31.1 SECONDS (20.0-32.5); D-DIMER 0.75 mg/L (0.19-0.60); INTERNATIONAL NORMALIZED RATIO 1.2 RATIO (0.7-1.3); PROTHROMBIN TIME 12.1 SECONDS (9.0-12.5)
[2019-04-22 15:09] LABS: ALBUMIN 3.6 g/dL (3.2-5.0); ALKALINE PHOSPHATASE 102 u/l (38-126); ANION GAP 14 (6-22 (CALC)); BILIRUBIN, TOTAL 0.5 mg/dL (0.0-1.4); BUN 36 mg/dL (8-23); BUN/CREATININE RATIO 23 (12-20 (CALC)); CARBON DIOXIDE 23 mmol/l (22-30); CHLORIDE 106 mmol/l (95-108); CREATININE 1.5 mg/dL (0.7-1.3); ETHYL ALCOHOL 0 mg/dl (0-30); GFR 46 ML/MIN (>=60 (CALC)); GFR FOR AFR.AMER. 56 ML/MIN (>=60 (CALC)); LIPASE 108 u/l (23-300); POTASSIUM 4.7 mmol/l (3.5-5.1); SGOT/AST 26 u/l (19-48); SODIUM 138 mmol/l (137-146); TOTAL PROTEIN 7.3 g/dL (6.3-8.2)
[2019-04-22 15:10] LABS: DIGOXIN < 0.4 ng/mL (0.8-2.0)
[2019-04-22 15:49] LABS: URINE BILIRUBIN - DIPSTICK NEGATIVE (NEGATIVE); URINE BLOOD DIPSTICK NEGATIVE (NEGATIVE); URINE COLOR YELLOW; URINE GLUCOSE - DIPSTICK NEGATIVE (NEGATIVE); URINE KETONE NEGATIVE (NEGATIVE); URINE LEUK ESTERASE NEGATIVE (NEGATIVE); URINE NITRITE - DIPSTICK NEGATIVE (Negative); URINE PROTEIN - DIPSTICK 100 mg/dL (NEG-TRACE); URINE UROBILINOGEN - DIPSTICK 0.2 E.U./dL (0.2)
[2019-04-22 15:58] LABS: URINE MUCUS FEW hpf (NONE-FEW); URINE SQUAMOUS EPITHELIAL CELL FEW EPI/hpf (0-FEW)
[2019-04-22] MEDS ORDERED: ZITHROMAX250 MG PO (16:54)
[2019-04-22] MEDS ORDERED: ULTRAM50 MG PO (16:54)
[2019-04-22 17:15] VITALS: BP 131/63
== END 2019-04-22 17:43 | disposition home or self-care (01) ==
LOC: ED 13:35
DX: J18.9 Pneumonia, unspecified organism (principal); M54.5 Low back pain; G89.29 Other chronic pain; R60.0 Localized edema; I11.0 Hypertensive heart disease with heart failure; I15.0 Renovascular hypertension; E11.9 Type 2 diabetes mellitus without complications; I25.2 Old myocardial infarction; Z86.73 Personal history of transient ischemic attack (TIA), and cerebral infarction without residual deficits; Z95.5 Presence of coronary angioplasty implant and graft; Z95.820 Peripheral vascular angioplasty status with implants and grafts
CPT/HCPCS: Q9967

== ENCOUNTER 2019-05-26 14:57 | Inpatient (IN) | payer MEDICARE, MEDICAID ==
[~2019-05-26] VITALS: Ht 165.1 cm; Wt 98.3 kg
[~2019-05-26 14:57] MED LIST changes: +ULTRAM50 MG PO; +ZITHROMAX250 MG PO
[2019-05-26 15:59] LABS: HEMATOCRIT 32.6 % (39.0-50.0); HEMOGLOBIN 10.4 g/dl (14.0-18.0); IMMATURE GRANULOCYTES 0.4 % (0.0-5.0); MEAN CELL VOLUME 92.9 fL CALC (80.0-100.0); MEAN CORPUSCULAR HGB 29.6 pG CALC (26.0-32.0); MEAN CORPUSCULAR HGB CONC 31.9 g/L CALC (32.0-36.0); NEUT# 5.22 thou/uL (1.82-7.42); RED BLOOD COUNT 3.51 mill/uL (4.70-6.10); RED CELL DISTRI WIDTH 15.3 % (11.5-15.5)
[2019-05-26 16:14] LABS: ALBUMIN 3.9 g/dL (3.2-5.0); BILIRUBIN, TOTAL 0.4 mg/dL (0.0-1.4); TOTAL PROTEIN 7.6 g/dL (6.3-8.2)
[2019-05-26 16:16] LABS: CREATININE 3.3 mg/dL (0.7-1.3)
[2019-05-26 16:25] LABS: POTASSIUM 6.6 mmol/l (3.5-5.1)
[2019-05-26 17:04] LABS: TSH, 3RD GENERATION 1.17 uIU/mL (0.47 - 4.68)
[2019-05-26 18:25] LABS: CREATININE 3.1 mg/dL (0.7-1.3)
[2019-05-26 18:29] LABS: POTASSIUM 5.8 mmol/l (3.5-5.1)
[2019-05-26 18:30] VITALS: BP 136/51
[2019-05-26 19:00] VITALS: BP 112/47
[2019-05-26 20:00] VITALS: BP 125/46
[2019-05-26 21:00] VITALS: BP 119/73
[2019-05-26 22:00] VITALS: BP 117/44
[2019-05-26 22:17] LABS: URINE BILIRUBIN - DIPSTICK NEGATIVE (NEGATIVE); URINE BLOOD DIPSTICK NEGATIVE (NEGATIVE); URINE COLOR YELLOW; URINE GLUCOSE - DIPSTICK NEGATIVE (NEGATIVE); URINE KETONE NEGATIVE (NEGATIVE); URINE LEUK ESTERASE NEGATIVE (NEGATIVE); URINE NITRITE - DIPSTICK NEGATIVE (Negative); URINE PROTEIN - DIPSTICK 100 mg/dL (NEG-TRACE); URINE UROBILINOGEN - DIPSTICK 0.2 E.U./dL (0.2)
[2019-05-26 22:23] LABS: BARBITURATES NEGATIVE (NEGATIVE); COCAINE NEGATIVE (NEGATIVE); METHADONE NEGATIVE (NEGATIVE); OXCYCODONE NEGATIVE (NEGATIVE); TETRAHYDROCANNABIONOL NEGATIVE (NEGATIVE); TRICYLIC ANTIDEPRESSANTS NEGATIVE (NEGATIVE)
[2019-05-26 22:34] LABS: URINE SQUAMOUS EPITHELIAL CELL FEW EPI/hpf (0-FEW)
[2019-05-26 23:00] VITALS: BP 121/58
[2019-05-27] VITALS (21 sets, daily range): BP systolic 102–198; BP diastolic 43–79
[2019-05-27 05:44] LABS: HEMATOCRIT 31.9 % (39.0-50.0); HEMOGLOBIN 10.2 g/dl (14.0-18.0); IMMATURE GRANULOCYTES 0.3 % (0.0-5.0); MEAN CORPUSCULAR HGB 29.7 pG CALC (26.0-32.0); NEUT# 5.14 thou/uL (1.82-7.42); RED BLOOD COUNT 3.43 mill/uL (4.70-6.10); RED CELL DISTRI WIDTH 15.3 % (11.5-15.5)
[2019-05-27 06:17] LABS: POTASSIUM 5.7 mmol/l (3.5-5.1)
[2019-05-27] MEDS ORDERED: TIZANIDINE HCL2 M1 PO (10:57)
[2019-05-27] MEDS ORDERED: HYDRALAZINE10 MG PO (10:58)
[2019-05-27] MEDS ORDERED: CLOPIDOGREL75 MG PO (10:58)
[2019-05-27] MEDS ORDERED: DIOVAN320 MG PO (10:59)
[2019-05-27] MEDS ORDERED: SPIRONOLACT25 MG PO (11:00)
[2019-05-27] MEDS ORDERED: ATORVASTATIN CA80 MG PO (11:00)
[2019-05-27] MEDS ORDERED: NITROGLYCERIN0.4 MG SL (11:02)
[2019-05-27] MEDS ORDERED: NIFEDIPINE ER90 MG PO (11:04)
[2019-05-27] MEDS ORDERED: XARELTO10 MG PO (11:04)
[2019-05-27] MEDS ORDERED: TOPROL XL50 MG PO (11:05)
[2019-05-27 13:47] LABS: CREATININE 2.6 mg/dL (0.7-1.3)
[2019-05-27 13:55] LABS: POTASSIUM 5.8 mmol/l (3.5-5.1)
[2019-05-27 20:45] LABS: CREATININE 2.3 mg/dL (0.7-1.3)
[2019-05-27 20:51] LABS: POTASSIUM 5.7 mmol/l (3.5-5.1)
[2019-05-28] VITALS (19 sets, daily range): BP systolic 130–206; BP diastolic 54–101
[2019-05-28 05:30] LABS: HEMATOCRIT 34.1 % (39.0-50.0); HEMOGLOBIN 10.6 g/dl (14.0-18.0); IMMATURE GRANULOCYTES 0.3 % (0.0-5.0); MEAN CELL VOLUME 94.5 fL CALC (80.0-100.0); MEAN CORPUSCULAR HGB 29.4 pG CALC (26.0-32.0); MEAN CORPUSCULAR HGB CONC 31.1 g/L CALC (32.0-36.0); NEUT# 5.39 thou/uL (1.82-7.42); RED BLOOD COUNT 3.61 mill/uL (4.70-6.10); RED CELL DISTRI WIDTH 15.2 % (11.5-15.5)
[2019-05-28 05:50] LABS: ALBUMIN 3.3 g/dL (3.2-5.0); POTASSIUM 5.1 mmol/l (3.5-5.1); TOTAL PROTEIN 6.8 g/dL (6.3-8.2)
[2019-05-28 05:52] LABS: BILIRUBIN, TOTAL 0.8 mg/dL (0.0-1.4)
[2019-05-29 00:01] VITALS: BP 163/63
[2019-05-29 02:00] VITALS: BP 128/52
[2019-05-29 04:00] VITALS: BP 167/60
[2019-05-29 05:55] LABS: HEMATOCRIT 30.7 % (39.0-50.0); HEMOGLOBIN 9.8 g/dl (14.0-18.0); MEAN CELL VOLUME 92.7 fL CALC (80.0-100.0); MEAN CORPUSCULAR HGB 29.6 pG CALC (26.0-32.0); MEAN CORPUSCULAR HGB CONC 31.9 g/L CALC (32.0-36.0); RED BLOOD COUNT 3.31 mill/uL (4.70-6.10); RED CELL DISTRI WIDTH 15.1 % (11.5-15.5)
[2019-05-29 06:16] LABS: CREATININE 1.7 mg/dL (0.7-1.3); MAGNESIUM 1.4 mg/dL (1.6-2.3); POTASSIUM 4.4 mmol/l (3.5-5.1)
[2019-05-29 07:15] VITALS: BP 152/79
[2019-05-29] MEDS ORDERED: TRULICITY1.5 MG/0.5 SC (09:29)
[2019-05-29] MEDS ORDERED: TOUJEO SOL300 UNIT/M SC (09:29)
[2019-05-29] MEDS ORDERED: BUMETANIDE1 MG PO (09:29)
[2019-05-29] MEDS ORDERED: CYMBALTA60 MG PO (09:30)
[2019-05-29] MEDS ORDERED: Levaquin PO (09:31)
[2019-05-29 10:00] VITALS: BP 148/74
[2019-05-29 11:59] VITALS: BP 140/80
[2019-06-25] MEDS ORDERED: FUROSEMIDE20 MG PO (17:08)
[2019-06-25] MEDS ORDERED: HYDRALAZINE10 MG PO (17:12)
== END 2019-05-29 12:30 | disposition home or self-care (01) | DRG 682 ==
LOC: ED 14:57 → ED-I 16:36 → ED 16:48 → ICU 16:49
PROVIDERS: Emergency Medicine; Internal Medicine; Nurse Practitioner Family; ADMIT Internal Medicine; ATTEND Internal Medicine
PROC: 5A09357 Assistance with Respiratory Ventilation, Less than 24 Consecutive Hours, Continuous Positive Airway Pressure (ICD-10-PCS; principal; 2019-05-26)
DX: N17.9 Acute kidney failure, unspecified (principal); J18.9 Pneumonia, unspecified organism; I13.0 Hypertensive heart and chronic kidney disease with heart failure and stage 1 through stage 4 chronic kidney disease, or unspecified chronic kidney disease; I50.32 Chronic diastolic (congestive) heart failure; E11.22 Type 2 diabetes mellitus with diabetic chronic kidney disease; N18.3 Chronic kidney disease, stage 3 (moderate); E11.51 Type 2 diabetes mellitus with diabetic peripheral angiopathy without gangrene; I25.10 Atherosclerotic heart disease of native coronary artery without angina pectoris; E87.5 Hyperkalemia; D63.1 Anemia in chronic kidney disease; T46.4X5A Adverse effect of angiotensin-converting-enzyme inhibitors, initial encounter; T50.2X5A Adverse effect of carbonic-anhydrase inhibitors, benzothiadiazides and other diuretics, initial encounter; I48.91 Unspecified atrial fibrillation; Z79.01 Long term (current) use of anticoagulants; Z79.02 Long term (current) use of antithrombotics/antiplatelets; Z86.73 Personal history of transient ischemic attack (TIA), and cerebral infarction without residual deficits; Z79.4 Long term (current) use of insulin; Z95.5 Presence of coronary angioplasty implant and graft; Z95.828 Presence of other vascular implants and grafts
CPT/HCPCS: J1650; J3475

== ENCOUNTER 2019-06-01 13:35 | Emergency (ER) | payer MEDICARE, MEDICAID ==
[~2019-06-01] VITALS: Ht 165.1 cm; Wt 99.0 kg
[~2019-06-01 13:35] MED LIST changes: +BUMETANIDE1 MG PO; +CYMBALTA60 MG PO; +DIOVAN320 MG PO; +HYDRALAZINE10 MG PO; +Levaquin PO; +NIFEDIPINE ER90 MG PO; +NITROGLYCERIN0.4 MG SL; +SPIRONOLACT25 MG PO; +TIZANIDINE HCL2 M1 PO; +TOPROL XL50 MG PO; +TRULICITY1.5 MG/0.5 SC
[2019-06-01] MEDS ORDERED: GENTAK0.32 OS (14:29)
[2019-06-01 14:40] VITALS: BP 131/59
[2019-06-01] MEDS ORDERED: ALLOPURINOL100 MG PO (14:45)
[2019-06-01] MEDS ORDERED: TRAMADOL HCL50 MG PO (14:48)
[2019-06-25] MEDS ORDERED: FUROSEMIDE20 MG PO (17:08)
[2019-06-25] MEDS ORDERED: HYDRALAZINE10 MG PO (17:12)
== END 2019-06-01 14:40 | disposition home or self-care (01) ==
LOC: ED 13:35
DX: H10.9 Unspecified conjunctivitis (principal); E11.9 Type 2 diabetes mellitus without complications; I10 Essential (primary) hypertension; I25.10 Atherosclerotic heart disease of native coronary artery without angina pectoris; Z86.73 Personal history of transient ischemic attack (TIA), and cerebral infarction without residual deficits

== ENCOUNTER 2019-06-06 11:53 | Emergency (ER) | payer MEDICARE, MEDICAID ==
[~2019-06-06] VITALS: Ht 165.1 cm; Wt 98.0 kg
[~2019-06-06 11:53] MED LIST changes: +GENTAK0.32 OS
[2019-06-06 13:10] LABS: HEMATOCRIT 33.2 % (39.0-50.0); HEMOGLOBIN 10.4 g/dl (14.0-18.0); IMMATURE GRANULOCYTES 0.5 % (0.0-5.0); MEAN CELL VOLUME 92.7 fL CALC (80.0-100.0); MEAN CORPUSCULAR HGB 29.1 pG CALC (26.0-32.0); MEAN CORPUSCULAR HGB CONC 31.3 g/L CALC (32.0-36.0); NEUT# 4.58 thou/uL (1.82-7.42); RED BLOOD COUNT 3.58 mill/uL (4.70-6.10); RED CELL DISTRI WIDTH 15.4 % (11.5-15.5)
[2019-06-06 13:14] LABS: ALBUMIN 3.9 g/dL (3.2-5.0); BILIRUBIN, TOTAL 0.5 mg/dL (0.0-1.4); CREATININE 2.4 mg/dL (0.7-1.3); TOTAL PROTEIN 7.7 g/dL (6.3-8.2)
[2019-06-06 13:16] LABS: POTASSIUM 5.9 mmol/l (3.5-5.1)
[2019-06-06 13:17] LABS: ACT PARTIAL THROMBO TIME 36.1 SECONDS (20.0-32.5); INTERNATIONAL NORMALIZED RATIO 1.3 RATIO (0.7-1.3); PROTHROMBIN TIME 13.1 SECONDS (9.0-12.5)
[2019-06-06 14:19] VITALS: BP 163/70
[2019-06-06] MEDS ORDERED: LASIX 40 MG TAB40 MG PO (14:21)
[2019-06-25] MEDS ORDERED: FUROSEMIDE20 MG PO (17:08)
[2019-06-25] MEDS ORDERED: HYDRALAZINE10 MG PO (17:12)
== END 2019-06-06 14:31 | disposition home or self-care (01) ==
LOC: ED 11:53
DX: R60.9 Edema, unspecified (principal); E11.9 Type 2 diabetes mellitus without complications; I10 Essential (primary) hypertension; I25.10 Atherosclerotic heart disease of native coronary artery without angina pectoris; Z86.73 Personal history of transient ischemic attack (TIA), and cerebral infarction without residual deficits; Z79.4 Long term (current) use of insulin; M79.89 Other specified soft tissue disorders; M79.605 Pain in left leg; M79.604 Pain in right leg

== ENCOUNTER 2019-06-28 | Inpatient (IN) | payer MEDICARE, MEDICAID ==
--- NOTE | 2019-06-25 13:09 | NUR ---
PT AWARE OF BUSY ED AND WAIT TIME. PT HAS EQUAL BILATERAL PEDAL PULSES. PT BACK OUT TO WAITING ROOM TO AWAIT ROOM ASSIGNMENT.
--- NOTE | 2019-06-25 13:26 | NUR ---
[facility]
[2019-06-25 14:11] LABS: HEMATOCRIT 32.4 % (39.0-50.0); HEMOGLOBIN 10.3 g/dl (14.0-18.0); IMMATURE GRANULOCYTES 0.4 % (0.0-5.0); MEAN CELL VOLUME 91.5 fL CALC (80.0-100.0); MEAN CORPUSCULAR HGB 29.1 pG CALC (26.0-32.0); MEAN CORPUSCULAR HGB CONC 31.8 g/L CALC (32.0-36.0); NEUT# 6.82 thou/uL (1.82-7.42); RED BLOOD COUNT 3.54 mill/uL (4.70-6.10); RED CELL DISTRI WIDTH 15.5 % (11.5-15.5)
--- NOTE | 2019-06-25 14:30 | NUR ---
PT RESTING IN NO DISTRESS. DENIES ABD DISCONFORT OR N/V/D
[2019-06-25 14:32] LABS: ALBUMIN 4.5 g/dL (3.2-5.0); BILIRUBIN, TOTAL 0.6 mg/dL (0.0-1.4); CREATININE 3.6 mg/dL (0.7-1.3); TOTAL PROTEIN 8.7 g/dL (6.3-8.2)
[2019-06-25 14:33] LABS: POTASSIUM 5.8 mmol/l (3.5-5.1)
--- NOTE | 2019-06-25 15:30 | NUR ---
PT SITTING IN BED TALKING WITH VISITOR AT BEDSIDE. IVF INFUSING WELL. VSS. UPDATED ON POC AND WAIT TIME
--- NOTE | 2019-06-25 16:16 | NUR ---
INITIATED IV FLUIDS ORDERED. PT TOELRATING WELL. VSS. PT DENIES NAUSEA OR EMESIS SINCE IN ED
[2019-06-25 16:30] LABS: URINE BILIRUBIN - DIPSTICK NEGATIVE (NEGATIVE); URINE BLOOD DIPSTICK NEGATIVE (NEGATIVE); URINE COLOR YELLOW; URINE GLUCOSE - DIPSTICK NEGATIVE (NEGATIVE); URINE KETONE NEGATIVE (NEGATIVE); URINE LEUK ESTERASE NEGATIVE (NEGATIVE); URINE NITRITE - DIPSTICK NEGATIVE (Negative); URINE PROTEIN - DIPSTICK 100 mg/dL (NEG-TRACE); URINE SPECIFIC GRAVITY 1.025; URINE UROBILINOGEN - DIPSTICK 0.2 E.U./dL (0.2)
[2019-06-25 16:52] LABS: URINE RBC 0-2 RBC/hpf (0-5); URINE WBC 0-2 WBC/hpf (0-5)
--- NOTE | 2019-06-25 17:22 | NUR ---
NOTIFIED BTETY HOLLIDAY OF EMESIS, ZOFRAN IV ORDERED
--- NOTE | 2019-06-25 18:00 | NUR ---
IV LT AC WITH SLIGHT INFILTRATION. WARM COMPRESS AND PRESSURE APPLIED. IV DC. PT TOLERATED WELL
--- NOTE | 2019-06-25 18:20 | NUR ---
CALLED REPORT TO RICH LAMBERT
--- NOTE | 2019-06-25 18:25 | NUR ---
INITIATED IV AND IV ZOFRAN ORDERED, NO FURTHER EMESIS. VSS, UPDATED PT ON TRANSFER TIME
--- NOTE | 2019-06-25 18:30 | NUR ---
RECEIVED REPORT FROM ASHISH MOSES IN ER., PT HAD TO HAVE A NEW IV SITE. DUE TO INFILTRATION. WAITING FOR PT'S ARRIVAL.
--- NOTE | 2019-06-25 19:00 | NUR ---
Admission Note Report Given to: sbar printed to floor Transported by: Wheelchair x Stretcher Transported with: x Nurse Transporter x Patent IV O2 x Opening Machine Cleaner
[2019-06-25 19:17] VITALS: BP 111/60
--- NOTE | 2019-06-25 19:30 | NUR ---
PT. ARRIVED TO THE FLOOR VIA STRETCHER ACCOMPANIED BY ER NURSE, JOSUÉ HINOJOSA @[id number]. PT. IS ORIENTED TO ROOM, CALL LIGHT, AND POC.ASSISTED TO SIT ON SIDE OF THE BED AND EAT DINNER. ADMISSION ASSESSMENT COMPLETED. IV SITE PATENT AND ORDERED IVF STARTED.PT. DECLINES SHELIA HOSE TO BE APPLIED HE DOES NOT WANT ANYTHING TOO TIGHT ON HIS LEGS THAT WOULD INCREASE PAIN. PT. TOLERATING DINNER TRAY WELL; NO VOMITING OR NAUSEA. PT. WITH UNDERGARMENTS WITH STAINS AND PT. DECLINES TO REMOVED AT THIS TIME; BUTTOCKS INSPECTED AND SKIN INTACT. PT. REPORTS SOME SORT OF PROBLEMS WITH HIS KIDNEYS IN THE PAST, BUT UNSURE OF WHAT. INSTRUCTED TO CALL FOR ANY NEEDS. URINAL AT BEDSIDE. CALL LIGHT IS IN REACH.
[2019-06-25 23:56] VITALS: BP 118/56
--- NOTE | 2019-06-25 23:56 | NUR ---
PT. RESTING IN BED WATCHIND TV, NO DISTRESS NOTED; DENIES NEEDS/PAIN. VSS. TELEMETRY IN PLACE. IV SITE PATENT AND ORDERED IVF INFUSING WELL. URINAL EMPTIED. VOICES NO CONCERNS. INSTRUCTED TO CALL FOR ALL NEEDS. CALL LIGHT IS IN REACH.
--- NOTE | 2019-06-26 02:19 | NUR ---
PT. RESTING IN BED WITH EYES CLOSED; RESP. EVEN AND UNLABORED. NO DISTRESS NOTED. URINAL EMPTIED. CALL LIGHT IS IN REACH.
[2019-06-26 03:16] VITALS: BP 100/50
--- NOTE | 2019-06-26 03:16 | NUR ---
PT. RESTING IN BED ALSEEP, AWAKENED FOR AM VS; VSS. DENIES NEEDS/PAIN. URINAL EMPTIED. VOICES NO CONCERNS. ENCOURAGED TO CALL FOR ANY NEEDS. CALL LIGHT IS IN REACH.
[2019-06-26 04:54] LABS: HEMATOCRIT 30.1 % (39.0-50.0); HEMOGLOBIN 9.6 g/dl (14.0-18.0); IMMATURE GRANULOCYTES 0.1 % (0.0-5.0); MEAN CELL VOLUME 92.3 fL CALC (80.0-100.0); MEAN CORPUSCULAR HGB 29.4 pG CALC (26.0-32.0); MEAN CORPUSCULAR HGB CONC 31.9 g/L CALC (32.0-36.0); NEUT# 3.72 thou/uL (1.82-7.42); RED BLOOD COUNT 3.26 mill/uL (4.70-6.10); RED CELL DISTRI WIDTH 15.4 % (11.5-15.5)
[2019-06-26 05:14] LABS: CREATININE 2.9 mg/dL (0.7-1.3)
[2019-06-26 05:15] LABS: MAGNESIUM 1.9 mg/dL (1.6-2.3); POTASSIUM 5.5 mmol/l (3.5-5.1)
--- NOTE | 2019-06-26 05:24 | NUR ---
PT. RESTING IN BED WITH NO DISTRESS NOTED; DENIES NEEDS/PAIN. FRESH WATER PROVIDED AND ORANGE JUICE WITH CRACKERS GIVEN BS 79 IN LABS. URINAL EMPTIED. NEW BAG OF ORDERED IVF HUNG. CALL LIGHT IS IN REACH.
[2019-06-26 08:00] VITALS: BP 104/69
--- NOTE | 2019-06-26 08:00 | NUR ---
ASSESSMENT IS COMPLETED; IV SITE IS FREE FROM REDNESS OR EDEMA. HR IS REG, PULSES ARE STRONG X4, ABD IS SOFT WITH ACTIVE BS. BREATH SOUNDS ARE CLEAR,BILATERALLY. TEMP WAS 99.6 BUT THE ROOM WAS VERY WARM. TELE MONITOR IN PLACE. CONTINUE TO LISETH.,
[2019-06-26 11:25] VITALS: BP 95/37
--- NOTE | 2019-06-26 12:30 | NUR ---
PT IS RELAXING IN BED WITH NO DISTRESS NOTED. IV SITE IS FREE FROM REDNESS OR EDEMA.
[2019-06-26 15:48] VITALS: BP 116/61
--- NOTE | 2019-06-26 16:30 | NUR ---
PT IS RELAXING IN BED WITH NO DISTRESS NOTED. IV SITE IS FREE FROM REDNESS OR EDEMA. CONTINUE TO OBSERVE AND MONITOR. FRIENDS HAVE BEEN VISITING IN THE ROOM.
[2019-06-26 19:10] VITALS: BP 110/57
[2019-06-26 21:25] VITALS: BP 143/61
--- NOTE | 2019-06-26 21:45 | NUR ---
PT MEDICATED ORDERS PROVIDE AND ASSESSMENT COMPLETED AT THIS TIME. CALL LIGHT W/IN REACH AND PT ENCOURAGED TO CALL. NO S/O DISTRESS NOTED.
[2019-06-27 00:15] VITALS: BP 98/49
--- NOTE | 2019-06-27 00:28 | NUR ---
pt sleeping, ivp sounded, no s/o distress, pt denies any needs. call light w/in reach
[2019-06-27 04:20] VITALS: BP 90/54
[2019-06-27 04:43] LABS: HEMATOCRIT 32.7 % (39.0-50.0); HEMOGLOBIN 10.2 g/dl (14.0-18.0); IMMATURE GRANULOCYTES 0.4 % (0.0-5.0); MEAN CORPUSCULAR HGB 29.3 pG CALC (26.0-32.0); MEAN CORPUSCULAR HGB CONC 31.2 g/L CALC (32.0-36.0); NEUT# 5.69 thou/uL (1.82-7.42); RED BLOOD COUNT 3.48 mill/uL (4.70-6.10); RED CELL DISTRI WIDTH 15.8 % (11.5-15.5)
[2019-06-27 04:59] LABS: CREATININE 2.3 mg/dL (0.7-1.3); MAGNESIUM 1.8 mg/dL (1.6-2.3)
[2019-06-27 05:02] LABS: POTASSIUM 5.3 mmol/l (3.5-5.1)
--- NOTE | 2019-06-27 05:10 | NUR ---
IVPUMP CLEARED, PT DENIES ANY NEEDS. HE IS AWAKE IN LOW FOWLERS POSITION, LIGHTS OFF WATCHING TV. CALL LIGHT W/IN REACH.
[2019-06-27 07:51] VITALS: BP 107/46
--- NOTE | 2019-06-27 08:00 | NUR ---
PT AWAKE, ALERT, ORIENTED X 3. NO DISTRESS, NO COMPLAINTS.
--- NOTE | 2019-06-27 10:32 | NUR ---
I SPOKE WITH MO FROM DR. LAUREN WISE OFFICE @1030 AM ABOUT THE CONSULTATION ORDERED FOR MED REVIEW. SHE STATED THAT SHE WOULD NOTIFY THEM AND THEY WOULD SEE THE PT TODAY. #[phone]
[2019-06-27 11:35] VITALS: BP 108/50
--- NOTE | 2019-06-27 12:00 | NUR ---
PT SEEN BY DR DIAZ AND BETTY THIS MORNING, HOPE IS TO DISCHARGE PT HOME THIS AFTERNOON. PT PROVIDED MILK OF MAGNESIA PER NO BM X 2 DAYS, UNUSUAL FOR HIM.
--- NOTE | 2019-06-27 17:00 | NUR ---
PT CONTINUES BEFORE, NO REPORT OF PAIN OR OTHERWISE. PT AWAITS DR DIAZ FOR POSSIBLE DISCHARGE HOME TONIGHT.
[2019-06-27 17:06] VITALS: BP 143/59
[2019-06-27 18:55] VITALS: BP 145/50
--- NOTE | 2019-06-27 20:16 | NUR ---
PT MEDICATED ORDERS PROVIDE. ASSESSMENT COMPLETED AT THIS TIME. PT REFUSED MOFMAG/PRUNE JUICE AT THIS TIME STATING, HE DOESN'T "WANT TO OVER DO IT." ACTIVE BOWEL SOUNDS AT THIS TIME.
--- NOTE | 2019-06-27 23:15 | NUR ---
IVF REPLENISHED AT THIS TIME. PT DENIES ANY OTHER NEEDS. LIGHTS ARE OFF, PT IS AWAKE WATCHING TV. DENIES ANY OTHER NEEDS AT THIS TIME. CALL LIGHT W/IN REACH.
[~2019-06-28] MED LIST changes: +FUROSEMIDE20 MG PO
[2019-06-28 00:05] VITALS: BP 138/65
[2019-06-28 03:55] VITALS: BP 145/61
[2019-06-28 04:48] LABS: HEMOGLOBIN 9.5 g/dl (14.0-18.0); IMMATURE GRANULOCYTES 0.3 % (0.0-5.0); MEAN CELL VOLUME 93.5 fL CALC (80.0-100.0); MEAN CORPUSCULAR HGB 29.6 pG CALC (26.0-32.0); MEAN CORPUSCULAR HGB CONC 31.7 g/L CALC (32.0-36.0); NEUT# 4.66 thou/uL (1.82-7.42); RED BLOOD COUNT 3.21 mill/uL (4.70-6.10); RED CELL DISTRI WIDTH 15.4 % (11.5-15.5)
[2019-06-28 05:07] LABS: CREATININE 1.8 mg/dL (0.7-1.3); MAGNESIUM 1.7 mg/dL (1.6-2.3); POTASSIUM 4.9 mmol/l (3.5-5.1)
[2019-06-28 07:29] VITALS: BP 116/63
--- NOTE | 2019-06-28 08:00 | NUR ---
PT WITHOUT COMPLAINT HE RESTS IN THE BED. LUNGS CLEAR, ALERT AND ORIENTED X 3, SKIN INTACT. PT WAS GIVEN MOM AND MIRALAX YESTERDAY WITHOUT RESULT, BUT HE DOES NOT WANT ANY FURTHER MED.
[2019-06-28 10:45] VITALS: BP 137/50
--- NOTE | 2019-06-28 12:00 | NUR ---
PT SEEN WITH VISITORS X 2 AT BEDSIDE. NO COMPLAINTS OR EVIDENCE OF DISTRESS. PT HOPING FOR DISCHARGE WHEN PHYSICIAN ARRIVES.
[2019-06-28 15:40] VITALS: BP 161/62
--- NOTE | 2019-06-28 16:07 | NUR ---
PT SEEN BY DR MELENDREZ THIS AFTERNOON. CONDITION UNCHANGED, NO COMPLAINTS OR EVIDENCE OF DISTRESS.
[2019-06-28 19:00] VITALS: BP 144/50
--- NOTE | 2019-06-28 19:25 | NUR ---
ASSESSMENT COMPLETED. NO DISTRESS NOTED;DENIES NEEDS/PAIN. IV SITE PATENT AND ORDERED IVF INFUSING WELL. UPDATED ON POC. VSS. PT. OFFERED LAXATIVES DUE TO STILL NO BM AND PT. REFUSES AT THIS TIME AND INSTRUCTED IF HE CHANGES HIS MIND TO LET THIS DIGITAL INTERN KNOW; VERBALIZES UNDERSTANDING. CALL LIGHT IS IN REACH.
--- NOTE | 2019-06-28 23:40 | NUR ---
PT. RESTING IN BED AND AWAKENED FOR VS; VSS. PT. ASKED TO HAVE BS CHECKED AND IS 89. SNACK PROVIDED. URINAL EMPTIED. CALL LIGHT IS IN REACH.
[2019-06-29 00:04] VITALS: BP 146/70
--- NOTE | 2019-06-29 01:57 | NUR ---
PT. RESTING IN BED WATCHING TV. NO DISTRESS NOTED. DENIES NEEDS. VOICES NO CONCERNS. URINAL EMPTIED. CALL LIGHT IS IN REACH.
[2019-06-29 04:36] VITALS: BP 159/72
--- NOTE | 2019-06-29 04:38 | NUR ---
VSS. DENIES PAIN. MOM GIVEN TO ASSIST WITH BM. ENCOURAGED TO CALL FOR ANY NEEDS. CALL LIGHT IS IN REACH. WILL CONTINUE TO MONITOR.
[2019-06-29 05:23] LABS: HEMATOCRIT 29.5 % (39.0-50.0); HEMOGLOBIN 9.4 g/dl (14.0-18.0); IMMATURE GRANULOCYTES 0.2 % (0.0-5.0); MEAN CELL VOLUME 92.8 fL CALC (80.0-100.0); MEAN CORPUSCULAR HGB 29.6 pG CALC (26.0-32.0); MEAN CORPUSCULAR HGB CONC 31.9 g/L CALC (32.0-36.0); NEUT# 3.16 thou/uL (1.82-7.42); RED BLOOD COUNT 3.18 mill/uL (4.70-6.10); RED CELL DISTRI WIDTH 15.3 % (11.5-15.5)
[2019-06-29 05:43] LABS: CREATININE 1.6 mg/dL (0.7-1.3); MAGNESIUM 1.6 mg/dL (1.6-2.3)
[2019-06-29 06:08] LABS: POTASSIUM 5.5 mmol/l (3.5-5.1)
[2019-06-29 08:00] VITALS: BP 142/57
--- NOTE | 2019-06-29 08:00 | NUR ---
PT AWAKE, ALERT, ORIENTED X 3. LUNGS CLEAR, RA. FEVER THIS MORNING OF 99.8. POSITIVE BOWEL SOUNDS BUT NO BM YET.
[2019-06-29 12:05] VITALS: BP 170/70
--- NOTE | 2019-06-29 12:50 | NUR ---
PT DID HAVE A BM. PT WAITS FOR PHYSICIAN IN ROOM, HOPES FOR DISCHARGE TO HOME LATER TODAY.
[2019-06-29 15:16] VITALS: BP 164/72
--- NOTE | 2019-06-29 15:48 | NUR ---
called consultation to dr. walter. left message mahi he didnt answer the phone.
--- NOTE | 2019-06-29 16:00 | NUR ---
PT SEEN BY DR MELENDREZ THIS AFTERNOON. PT'S CONDITION CONTINUES TO BE UNSAFE FOR DISCHARGE HOME, PT AGREEABLE TO STAY. NEW IV ESTABLISHED TO LEFT HAND, TOLERATED WELL.
[2019-06-29 19:33] VITALS: BP 156/80
--- NOTE | 2019-06-29 20:45 | NUR ---
[id number]-COVERED WITH NOALOG 1UNIT SQ PER SLIDING SCALE COVERAGE PROTOCOL. NO COMPLAINTS AT THIS TIME. CALL LIGHTIN REACH. WILL CONT TO MONITOR.
[2019-06-29 21:27] LABS: CREATININE 1.6 mg/dL (0.7-1.3)
--- NOTE | 2019-06-29 21:30 | NUR ---
PATIENT RESTING IN BED. LASIX 20MG IVP GIVEN ORDERED VIA LEFT FOREARM SITE. SITE APPEARS HEALTHY AT THIS ITME. O2 VIANASAL CANNULA INPLACE. CALL LIGHT IN REACH. WILL CONT TO MONITOR.
[2019-06-29 21:37] LABS: POTASSIUM 5.6 mmol/l (3.5-5.1)
--- NOTE | 2019-06-29 23:49 | NUR ---
PATIENT SITTING ONTHE SIDE OF THE BED. PATIENT IS AWAKE ALERT AND ORIENTEDX3. TELE MONITOR IN PLACE. VOIDING QS IN URINAL CLEAR YELLOW URINE. SAFETY PRECAUTIONS REINFORCED. CALL LIGHT IN REACH. WILL CONT TO MONITOR.
[2019-06-30] VITALS: BP 138/55
--- NOTE | 2019-06-30 02:58 | NUR ---
APPEARS SLEEPING AT THIS TIME WITH EYES CLOSED. RESP ARE EVEN AND UNLABORED AT THIS TIME. IVF PATENT AND INFUSING VIA LEFT FOREARM SITE. CALL LIGHT IN REACH. WILL CONT TO MONITOR.
[2019-06-30 04:00] VITALS: BP 120/66
--- NOTE | 2019-06-30 05:31 | NUR ---
PATIENT ASSISTED TO STANDING SCALE. WEGHT TODAY-208.2-LOSS OF APPROX 4LBS SINCE YESTERDAY, BACK IN BED. CALL LIGHT IN REACH. WILL CONT TO MONITOR.
[2019-06-30 06:22] LABS: CREATININE 1.8 mg/dL (0.7-1.3); MAGNESIUM 1.5 mg/dL (1.6-2.3); POTASSIUM 4.8 mmol/l (3.5-5.1)
[2019-06-30 07:12] VITALS: BP 130/75
--- NOTE | 2019-06-30 09:20 | NUR ---
PT AT REST IN THE BED, NO DISTRESS, NO COMPLAINTS. PT ALERT AND ORIENTED X 3. IVF AT 50.
[2019-06-30 11:00] VITALS: BP 143/80
--- NOTE | 2019-06-30 12:18 | NUR ---
PT WAITS TO BE SEEN BY DR MELENDREZ TODAY, ANTICIPATES DISCHARGE. NO CHANGE IN STATUS, NO DISTRESS.
--- NOTE | 2019-06-30 14:04 | NUR ---
PT SEEN BY DR MELENDREZ, DISCHARGED TO HOME. PT LEAVES [facility] IN STABLE CONDITION, WILL FOLLOW UP DIRECTED.
--- NOTE | 2019-06-30 14:24 | NUR ---
PT RECEIVED HIS BAG OF MEDICINES FROM PHARMACY PRIOR TO DISCHARGE, GIVEN TO HIM UNOPENED. PT UNDERSTANDS NEED TO FOLLOW UP ON TUESDAY WITH DR MELENDREZ AFTER HAVING BLOOD DRAWN Tuesday. PT LEAVES AMBULATORY, REFUSED WHEELCHAIR.
== END 2019-06-30 14:18 | disposition home or self-care (01) | DRG 683 ==
PROVIDERS: Family Medicine; Internal Medicine Nephrology; Nurse Practitioner Family; ADMIT Internal Medicine
DX: N17.9 Acute kidney failure, unspecified (principal); I13.0 Hypertensive heart and chronic kidney disease with heart failure and stage 1 through stage 4 chronic kidney disease, or unspecified chronic kidney disease; I48.20 Chronic atrial fibrillation, unspecified; I50.9 Heart failure, unspecified; E11.22 Type 2 diabetes mellitus with diabetic chronic kidney disease; N18.4 Chronic kidney disease, stage 4 (severe); E87.5 Hyperkalemia; K52.9 Noninfective gastroenteritis and colitis, unspecified; E86.0 Dehydration; E11.51 Type 2 diabetes mellitus with diabetic peripheral angiopathy without gangrene; I25.10 Atherosclerotic heart disease of native coronary artery without angina pectoris; D63.1 Anemia in chronic kidney disease; M10.00 Idiopathic gout, unspecified site; Z95.5 Presence of coronary angioplasty implant and graft; Z86.73 Personal history of transient ischemic attack (TIA), and cerebral infarction without residual deficits; Z86.718 Personal history of other venous thrombosis and embolism; Z79.4 Long term (current) use of insulin; Z95.820 Peripheral vascular angioplasty status with implants and grafts; Z87.891 Personal history of nicotine dependence; Z79.01 Long term (current) use of anticoagulants
CPT/HCPCS: G0378

== ENCOUNTER 2019-07-04 | Observation (INO) | payer MEDICARE, MEDICAID ==
[2019-07-04] MEDS ORDERED: NIFEDIPINE ER90 MG PO (04:23)
[2019-07-04] MEDS ORDERED: TOPROL XL50 MG PO (04:24)
--- NOTE | 2019-07-04 04:30 | NUR ---
C/O VOMITED AND DIARRHEA THIS MORNING. JUST RELEASED FROM HOSPITAL ON TUESDAY
--- NOTE | 2019-07-04 05:00 | NUR ---
BEDRESTING. TALKATIVE. C/O PAIN ALMOST EVERY TIME I TOUCHED HIM (WHEN I LIFTED HAND TO APPLY GOWN....)
[2019-07-04 05:14] LABS: HEMATOCRIT 32.2 % (39.0-50.0); HEMOGLOBIN 10.4 g/dl (14.0-18.0); IMMATURE GRANULOCYTES 0.4 % (0.0-5.0); MEAN CELL VOLUME 91.5 fL CALC (80.0-100.0); MEAN CORPUSCULAR HGB 29.5 pG CALC (26.0-32.0); MEAN CORPUSCULAR HGB CONC 32.3 g/L CALC (32.0-36.0); NEUT# 9.93 thou/uL (1.82-7.42); RED BLOOD COUNT 3.52 mill/uL (4.70-6.10); RED CELL DISTRI WIDTH 15.7 % (11.5-15.5)
[2019-07-04 05:32] LABS: ALBUMIN 4.3 g/dL (3.2-5.0); BILIRUBIN, TOTAL 0.5 mg/dL (0.0-1.4); CREATININE 2.6 mg/dL (0.7-1.3); POTASSIUM 4.5 mmol/l (3.5-5.1); TOTAL PROTEIN 8.6 g/dL (6.3-8.2)
--- NOTE | 2019-07-04 05:39 | NUR ---
ON WAY BACK FROM RADIOLOGY, PT YELLING "OH BUBBA.... GET THE URINAL. I GOTTA PEE" GOWN OFF PATIENT. HAS BROWN STAINS/HERNÁNDEZ ON SHEET THAT LOOK LIKE CHEWING TOBACCO. HAS BEEN SPITTING SINCE ARRIVAL TO ER. ASSISTED TO STAND BY BEDSIDE AND USED URINAL- VOIDED 300ML STRAW COLORED URINE
--- NOTE | 2019-07-04 05:44 | NUR ---
BEDRESTING. SNOORING AT THIS TIME
--- NOTE | 2019-07-04 06:12 | NUR ---
FRIEND OUT WANTING PAIN MEDICATION FOR PATIENT. HOWEVER, PT IS SNOORING.
[2019-07-04 06:42] LABS: URINE BILIRUBIN - DIPSTICK NEGATIVE (NEGATIVE); URINE BLOOD DIPSTICK NEGATIVE (NEGATIVE); URINE COLOR YELLOW; URINE GLUCOSE - DIPSTICK 100 mg/dL (NEGATIVE); URINE KETONE NEGATIVE (NEGATIVE); URINE LEUK ESTERASE NEGATIVE (NEGATIVE); URINE NITRITE - DIPSTICK NEGATIVE (Negative); URINE PROTEIN - DIPSTICK 30 mg/dL (NEG-TRACE); URINE UROBILINOGEN - DIPSTICK 0.2 E.U./dL (0.2)
[2019-07-04 06:44] LABS: URINE MUCUS MODERATE hpf (NONE-FEW)
--- NOTE | 2019-07-04 06:50 | NUR ---
REPORT GIVEN TO JOSUÉ HINOJOSA. PT ALAN. A REPEAT NAUSEA MEDICATION TO BE GIVEN AND TO START GASTROGRQFIN FOR RADIOLOGY STUDIES
--- NOTE | 2019-07-04 06:51 | NUR ---
ROUSED PT FROM SLEEP, SLIGHTLY GROGGY. MEDICATED WITH IV ZOFRAN ORDERED AND UPDATED ON POC .
--- NOTE | 2019-07-04 07:00 | NUR ---
INITIATED PO CONTRAST, PT TOELRATING WELL.
--- NOTE | 2019-07-04 07:06 | NUR ---
DR RAMIREZ AT BEDSIDE.
--- NOTE | 2019-07-04 07:40 | NUR ---
EMESIS X1 CLEAR LIGHT BROWN LIQUID. EDP UPDATED AND NEW ORDERS RECEIVED
--- NOTE | 2019-07-04 07:45 | NUR ---
MEDICATED FOR RLQ PAIN 8/10 THAT IS INTERMITTENT. MEDICATED FOR NAUSEA WITH IV ZOFRAN ORDERED
--- NOTE | 2019-07-04 08:05 | NUR ---
PT RESTING COMFORTABLY WITH NO FURTHER EMESIS
--- NOTE | 2019-07-04 08:21 | NUR ---
COMPLETED PO CONTRAST, TOLERATING WELL. VSS. RESTING WITH EYES CLOSED ROUSES EASILY. FRIEND CONTINUES AT BEDSIDE
--- NOTE | 2019-07-04 09:00 | NUR ---
PT RESTING COMFORTABLY AT THIS TIME. UPDATED ON POC AND WAIT TIME. VSS
--- NOTE | 2019-07-04 09:55 | NUR ---
ASSUMED CARE OF PT
--- NOTE | 2019-07-04 10:00 | NUR ---
PT IS SLEEPING AND RESPONDS TO VERBAL STIMULI, LUNGS SOUND CLEAR BILATERALLY WITH SLIGHTLY DIMINISHED LOWER LOBES (BI). ABDOMEN TENDER, UPON PALPATION PT GRIMICED AND TENSED UP, GENERALIZED. CAP REFILL BRISK. PT HAS A SLIGHTLY FAST RR OF 24. HOB ELEVATED. WILL CONTINUE TO MONITOR
--- NOTE | 2019-07-04 10:26 | NUR ---
DILAUDID ADMINISTERED STARTING VITALS BP 163/66 O2 SAT 92% HR 89 RR 24
--- NOTE | 2019-07-04 10:41 | NUR ---
O2 ADMINISTERED AT 3 L. PT O2 SAT WAS AT 82-86% PT CURRENTLY IS COMFORTABLE AND O2 SAT AT 98% PT DENIES ANY PAIN AT THIS TIME. RR 20
--- NOTE | 2019-07-04 11:20 | NUR ---
PT TRANSPORTED VIA STRETCHER TO MED SURG IN NO DISTRESS AND IN STABLE CONDITION. CARE ASSUMED TERRENCE
--- NOTE | 2019-07-04 11:24 | NUR ---
PT ARRIVED TO MED/SURG ROOM 274 IN STABLE CONDITION VIA STRETCHER ACCOMPANIED BY MKRN;PT ASSISTED INTO HOSPITAL BED WITH X4 PERSON ASSIST;VS AND WT OBTAINED BY ANDRES EASTMAN;PT A&O X3 BUT NOTED TO BE DROWSY;PT REPORTS ABDOMINAL PAIN STARTED 07/03/19 ACCOMPANIED BY NAUSEA AND VOMITING;ASSESSMENT COMPLETED AT THIS TIME;RESPIRATIONS SHALLOW ON O2 @ 3L VIA NC,CLEAR/DIMINISHED LUNG SOUNDS NOTED;ABDOMEN DISTENDED/FIRM ON PALPATION AND HYPOACTIVE IN ALL 4 QUADRANTS,TENDERNESS NOTED THROUGHOUT;PT REPORTS LAST BM 07/03/19;WEAK PEDAL PULSES;SKIN INTACT;TELE MONITORING IN PLACE;EMS #20G TO LEFT HAND INFUSING ABX WITH EASE, NS TO BE STARTED @ 80ML/HR PER ORDER,SITE APPEARS HEALTH;PT TO BECOME NPO PER FERNANDO NORWOOD;PT DENIES ANY ADDITIONAL NEEDS AT THIS TIME AND IS ENCOURAGED TO CALL FOR ASSISTANCE IF NEEDED;FALL PRECAUTIONS IN PLACE WITH CALL LIGHT IN REACH;WILL CONTINUE TO MONITOR
--- NOTE | 2019-07-04 11:45 | NUR ---
CUCO,ANRP AT BEDSIDE
--- NOTE | 2019-07-04 12:10 | NUR ---
PT TO BE TRANSFERRED TO [facility] PER FERNANDO NORWOOD WITH IN AGREEANCE,PT VERBALIZES UNDERSTANDING TO TRANSFER TO [facility] AT THIS TIME.
--- NOTE | 2019-07-04 12:17 | NUR ---
[facility]ORDIN[facility] TOLD ABOUT THIS PATIENT THAT DR. UNDERWOOD AND DR. MELENDREZ BOTH WOULD LIKE THIS PT TRNASFERRED THERE. GAVE NAME, , DIAGNOSIS, AND WHAT ROOM PT NEEDS. REACTOR KETTLE OPERATOR STATED SHE WILL CALL DR. MELENDREZ AND CALL ME BACK AT [phone].
--- NOTE | 2019-07-04 12:28 | NUR ---
RECEIVED CALL FROM PILATES INSTRUCTOR AT [facility] WAS GIVEN ROOM NUMBER [id number] FOR TRANSFER. AND WAS ALSO GIVEN CALL BACK NUMBER FOR REPORT [phone].
--- NOTE | 2019-07-04 12:42 | NUR ---
CALLED [facility] REGARDING THIS PT. SPOKE TO MANNY GAVE MENDEZ, CIARA, DIAGNOSIS, AND ALL THE ATTACHMENTS THAT NEEDS FOR THE PATIENT. MANNY GAVE ME A TIME OF 30 MINUTES FOR [facility]UDIOMETRIST TO [facility].
[2019-07-04 12:44] VITALS: BP 192/80
--- NOTE | 2019-07-04 12:50 | NUR ---
PT MEDICATED WITH APRESOLINE 10MG IVP BY TORY,RN FOR BP 192/80 HR 103,WILL CONTINUE TO MONITOR FOR EFFECTIVENESS
--- NOTE | 2019-07-04 13:25 | NUR ---
PT RESTING IN SEMI FOWLERS POSITION;RESPIRATIONS EVEN AND UNLABORED,SHALLOW ON O2 @ 3L VIA NC;PT REPORTS ABDOMINAL PAIN RATING 9/10 ON THE PAIN SCALE AND NAUSEA,PT MEDICATED WITH PRN DILAUDID 1MG AND ZOFRAN 4MG IVP AT THIS TIME;AWAITING [facility] FOR TRANSFER TO [facility];WILL CONTINUE TO MONITOR
[2019-07-04 13:35] VITALS: BP 162/102
--- NOTE | 2019-07-04 13:49 | NUR ---
PT LEFT VIA [facility] IN STABLE CONDITION VIA STRETCHER ACCOMPANIED BY X2 [facility].
--- NOTE | 2019-07-04 13:56 | NUR ---
REPORT CALLED TO J[facility]É LOUIE AT [facility]
== END 2019-07-04 15:49 ==
PROVIDERS: Family Medicine; ADMIT Internal Medicine
DX: R10.0 Acute abdomen (principal); J18.9 Pneumonia, unspecified organism; I13.0 Hypertensive heart and chronic kidney disease with heart failure and stage 1 through stage 4 chronic kidney disease, or unspecified chronic kidney disease; I50.9 Heart failure, unspecified; E11.22 Type 2 diabetes mellitus with diabetic chronic kidney disease; N18.3 Chronic kidney disease, stage 3 (moderate); E11.51 Type 2 diabetes mellitus with diabetic peripheral angiopathy without gangrene; I25.10 Atherosclerotic heart disease of native coronary artery without angina pectoris; I48.91 Unspecified atrial fibrillation; E78.5 Hyperlipidemia, unspecified; D63.1 Anemia in chronic kidney disease; Z87.891 Personal history of nicotine dependence; Z79.01 Long term (current) use of anticoagulants; Z95.820 Peripheral vascular angioplasty status with implants and grafts; Z79.4 Long term (current) use of insulin; Z95.5 Presence of coronary angioplasty implant and graft
CPT/HCPCS: G0378